=== PATIENT | male | born 1965 ===

== ENCOUNTER 2016-11-03 06:26 | Day surgery (SDC) | payer OTHER ==
[2016-11-03 10:22] VITALS: BP 115/75
== END 2016-11-03 10:45 | DRG 352 ==
LOC: ORM 06:26
PROVIDERS: ATTEND Surgery
PROC: 0YU50JZ Supplement Right Inguinal Region with Synthetic Substitute, Open Approach (ICD-10-PCS; principal; 2016-11-03)
DX: K40.30 Unilateral inguinal hernia, with obstruction, without gangrene, not specified as recurrent (principal)